=== PATIENT | female | born 2000 | race African-American/Black ===

== ENCOUNTER 2023-03-15 09:43 | Emergency (ER) | payer OTHER, SELFPAY ==
[2023-03-15 09:52] VITALS: BP 122/68
--- NOTE | 2023-03-15 10:36 | ED.GENMED ---
History of Present Illness
General
Chief Complaint: Back Pain
Source: patient
Exam Limitations: none
Time Seen by Provider: 03/15/23 09:57
Nursing documentation reviewed up to this point in time: agreed with
Travel History
Have you had any contact with someone who has COVID-19?: No
Do you have any symptoms of coronavirus? Fever > 100 degrees, chills, cough, shortness of breath, sore throat, loss of taste or smell, muscle aches, or headache?: No
History of Present Illness
History of Present Illness:
23 y/o F on ocp
here with months of lower back pain, mid lumbar midline pain, slightly worse on left side, nonradiating, no weakness/numbness/tignling/incontience
went to urgent care beginning of dec for this
gave robaxin and motrin and pain didn't get better
saw chiropractor and had adjustment and xrays, neg
no better
pt has been back to last week and they told her there was no other treatmnet
pt hasn't really been takin gthe muscle relaxant because she didn't feel relief
she has been clement to the gym and stretching
there is no change to pain today but pt wanted to come in and get checked because she has a lot of pain with bending and movement.
Past History
Past History
ED Past Medical History: None
ED Past Surgical History: Other
Social History
Tobacco: Non-smoker
Alcohol: None
Personal: Single
Living: with family
Employment: Employed ([employer])
Review of Systems
Review of Systems
Allergies reviewed?: Yes
All Other Systems: Not applicable
Phy Exam
Physical Exam
Physical Exam:
GENERAL: Alert , in no apparent distress, comfortable at rest
HEAD: NCAT
NECK: no midline tenderness, active ROM intact, no paraspinal muscle tenderness;
CARDIAC: Regular rate and rhythm, no edema
LUNGS: Clear breath sounds bilaterally, no acute respiratory distress, no wheezes/rales/rhonchi
ABDOMEN: Soft, without focal tenderness, no r/g, no cvat, normal bowel sounds, nondistended
NEUROLOGICAL: Alert and oriented, no focal neuro deficits, CN intact, 5/5 strength, sensation intact, ambulation slight limp left leg
SKIN: Warm and dry,
MUSCULOSKELETAL: No edema, well perfused. Normal inspection of the left hip, left leg
Patient has no tenderness to palpation of the hip, minimal tenderness in the SI joint
He has no pain with flexion of the left hip, external rotation, but with internal rotation has discomfort
Back: No midline tenderness, mild dextroscoliosis, slight left paraspinal muscle tenderness on exam, no swelling
negative straight leg raise Bilaterally
PSYCH: Normal and appropriate interaction.
Course
Orders/Labs/Results
Orders:
Orders
03/15/23 10:35
Lumbar Spine Complete, 4 View [CR Lumbar Spine Comp Min 4 Vw*] Urgent
Comment:
Reason For Exam: atraumatic low back pain (lmp last week);
03/15/23 11:35
Acetaminophen [Tylenol] 1,000 mg PO NOW STA
Ketorolac [Toradol] 30 mg IM NOW STA
Prednisone [Deltasone] 50 mg PO NOW STA
Vital Signs
Initial and Last Documented VS:
Initial Vital Signs
Temp Pulse Resp BP Pulse Ox
98.2 F 96 16 122/68 99
03/15/23 09:52 03/15/23 09:52 03/15/23 09:52 03/15/23 09:52 03/15/23 09:52
Last Documented Vital Signs
Temp Pulse Resp BP Pulse Ox
98.2 F 96 16 122/68 99
03/15/23 09:52 03/15/23 09:52 03/15/23 09:52 03/15/23 09:52 03/15/23 09:52
MDM/Problems Addressed
Differential Diagnosis Includes:
lumbar muscle pain, arthritis, disc herniation; less likely kidney infection, kidney stone
MDM/Problems Addressed:
23 y/o F
ongoing months of lower lumbar back pain, nonratdiating, positional/wrose with bending/movement
no associated red flag symptoms of numbness/tingling/weakness, incontiniece, no ivda
pt's lmp last week
has been to twice, chiropractor but still having symptoms
nothing new today
but till ongoin sypmtoms
on exam pt is very well appearing at rest
has pain with flexion
mild midline and left paraspinall upper and mid lumbar tendnress
no skin changes
no gluteal cleft swelling
neg straight leg raise b/l, normal distal NV exam
screening xrays indep reviewed by me and neg
nsaids here
pred rx x 5 days
tylenol
PT/pain mangaement.
considered UA but pt declined, had UA at and neg.
*Critical Care Note
Total Time (30-74mins, 75-104mins- exclusive of procedures): Not Applicable
ED Attending Note
-
Portions of this chart may have been created with voice recognition software.� Occasional wrong word or��sound alike� substitutions may have occurred due to the inherent limitations of voice recognition software.
Discharge Plan
Departure
Patient Disposition: Home (Routine Discharge)
Date of Disposition: 03/15/23
Time of Disposition: 11:39
Patient with high blood pressure during this ER visit?: No
Condition: Fair
Covid-19: Not Applicable
Discharge Problem:
Low back pain
Instructions: Low Back Pain (DC)
Prescriptions:
New
prednisone 50 mg tablet
50 mg PO DAILY Qty: 5 0RF
lidocaine 5 % adhesive patch,medicated
1 patch topical DAILY PRN (Reason: BACK PAIN) Qty: 15 0RF
No Action
Control Pill
1 tab PO DAILY
pantoprazole [Protonix] 40 mg tablet,delayed release (DR/EC)
40 mg PO DAILY Qty: 30 0RF
Rx Instructions:
Please take 30 minutes prior to eating or drinking anything in the morning.
Referrals:
Alfredo Santo MD [Active] - Follow up in 1 week (pain management for spine)
Leonie Handy CRNP [Family Provider] - Follow up in 2-3 days
Activity Restrictions/Additional Instructions:
YOUR SYMPTMOS SEEM RELATED TO MUSCULOSKELETAL BAKC PAIN
YOU CAN TRY A COURSE OF STEROIDS, PREDNISONE ONCE A DAY STARTING TOMORROW.
AVOID MOTRIN/IBUPROFEN FOR WHILE ON STEROIDS
TYLENOL 3 TIMES A DAY
YOU CAN CONTINUE THE MUSCLE RELAXANTS IF YOU WOULD LIKE
YOU CAN TRY TO SEE PAIN MANAGEMENT
YOU MAY NEED PT AND IF DO NOT GET BETTER, THEN MAYBE AN MRI
RETURN FOR: SEVERE PAIN, LEG WEAKNESS/NUMBNESS, INCONITINENCE, FEVER OR ANY CONCERNS.
Interventions
Interventions:
*Risk Screen - Suicide Last Done: 03/15/23 11:45
*General Assessment Last Done: 03/15/23 09:52
*Neglect/Abuse Screening Last Done: 03/15/23 11:45
ED- Fall Risk Assessment Last Done: 03/15/23 11:45
*ED COVID-19 Vaccine History Last Done: 03/15/23 09:52
*Nursing Disposition Last Done: 03/15/23 11:45
ED-Musculoskeletal Assessment Last Done: 03/15/23 11:46
Discharge Date and Time
Discharge Date/Time: 03/15/23 12:17
[2023-03-15] MEDS: DELTASONE 50 MG PO (11:44)
[2023-03-15] MEDS: TYLENOL 1000 MG PO (11:44)
[2023-03-15] MEDS: TORADOL 30 MG IM (11:45)
== END 2023-03-15 12:17 | disposition home or self-care (01) ==
LOC: EMR 09:43
PROVIDERS: EMERGENCY PHYSICIAN Student in an Organized Health Care Education/Training Program; FAMILY PHYSICIAN Nurse Practitioner
DX: M54.50 Low back pain, unspecified (principal)
CPT/HCPCS: 99283; 96372; 72110

== ENCOUNTER 2023-07-10 13:42 | Emergency (ER) | payer OTHER, SELFPAY ==
[2023-07-10 13:46] VITALS: BP 149/93
[2023-07-10] MEDS: MOTRIN 600 MG PO (14:59)
--- NOTE | 2023-07-10 15:27 | ED.MUSCINJ ---
HPI-Injury
General
Chief Complaint: Musculo-Skeletal Complaint
Source: patient
Exam Limitations: none
Time Seen by Provider: 07/10/23 14:46
Nursing documentation reviewed up to this point in time: agreed with
Travel History
Have you had any contact with someone who has COVID-19?: No
Do you have any symptoms of coronavirus? Fever > 100 degrees, chills, cough, shortness of breath, sore throat, loss of taste or smell, muscle aches, or headache?: No
History of Present Illness-Injury
Is this injury a work related problem?: No
Is pt an associate of [facility]?: No
Initial Injury comments:
Patient to ED with complaint of right sided neck pain. Unable to turn head. Radiates to right upper back. States she helped sig/other push his car 2 days prior to pain starting. Taking ibuprofen without relief. Pain started on .
Past History
Past History
ED Past Medical History: None
ED Past Surgical History: Other
Social History
Tobacco: Non-smoker
Alcohol: None
Personal: Single
Living: with family
Employment: Employed ([employer])
Review of Systems
Review of Systems
Allergies reviewed?: Yes
All Other Systems: ROS reviewed and negative except as documented in HPI and ROS
Constitutional: Reports no symptoms
Musculoskeletal: Reports neck pain (right sided neck pain radiating to right upper back.)
Skin: Reports no symptoms
Neurological: Reports no symptoms
Psychiatric: Reports no symptoms
Musculoskeletal Injury Exam
Musculoskeletal Injury Exam
Right Upper Back:
Pain with Movement?: Moderate
Tender to palpation?: Moderate
Soft tissue swelling?: None
External deformity and angulation?: None
Joint effusion?: None
Contusion?: None
Hematoma-local bleeding into tissue?: None
Strain- Sprain- Tear (Connective tissue injury)?: Moderate
Crepitus with movement?: No
Joint instability?: No
Malalignment/deformity?: No
Range of motion: Limited
Distal skin color and temperature: normal-warm & good color
Capillary Refill: normal
Normal distal neurovascular exam?: Yes
Phy Exam
General Physical Exam
General Presentation: well appearing and no apparent distress
General age: appears stated age
General Skin: warm and dry
General Habitus: normal
General Mental: alert
Neurological Exam
Neurological Exam: alert, oriented x3, no motor deficits, no sensory deficits and normal gait
Musculoskeletal Exam
Musculoskeletal Exam: neuro vasc intact
Skin Exam
Skin Exam: normal color, warm/dry and no rash
Psychiatric Exam
Psychiatric Exam: normal mood/affect
Injury Course
Orders/Labs/Results
Orders:
Orders
07/10/23 14:50
Ibuprofen [Motrin] 600 mg PO NOW STA
Cervical Spine 4 or 5 Vw [CR Cervical Spine 4 Or 5 Vw] Urgent
Comment:
Reason For Exam: right sided neck pain, stiffness.
*Radiology
Radiology exam reviewed: radiology read reviewed
*Pulse Oximetry
Patient hypoxic: no
*Critical Care Note
Total Time (30-74mins, 75-104mins- exclusive of procedures): Not Applicable
ED Attending Note
-
Portions of this chart may have been created with voice recognition software.� Occasional wrong word or��sound alike� substitutions may have occurred due to the inherent limitations of voice recognition software.
Discharge Plan
Departure
Patient Disposition: Home (Routine Discharge)
Date of Disposition: 07/10/23
Time of Disposition: 15:24
Patient with high blood pressure during this ER visit?: No
Condition: Good
Covid-19: Not Applicable
Discharge Problem:
Cervical strain
Instructions: Torticollis (DC), Ibuprofen, Using Cold for Pain
Prescriptions:
New
ibuprofen 600 mg tablet
600 mg PO Q6H PRN (Reason: Pain) Qty: 20 0RF
cyclobenzaprine 10 mg tablet
10 mg PO HS PRN (Reason: muscle spasm) Qty: 7 0RF
No Action
Control Pill
1 tab PO DAILY
pantoprazole [Protonix] 40 mg tablet,delayed release (DR/EC)
40 mg PO DAILY Qty: 30 0RF
Rx Instructions:
Please take 30 minutes prior to eating or drinking anything in the morning.
prednisone 50 mg tablet
50 mg PO DAILY Qty: 5 0RF
lidocaine 5 % adhesive patch,medicated
1 patch topical DAILY PRN (Reason: BACK PAIN) Qty: 15 0RF
Referrals:
Lenoie Handy CRNP [Family Provider] - Follow up in 2-3 days
Interventions
Interventions:
*Risk Screen - Suicide Last Done: 07/10/23 14:42
*General Assessment Last Done: 07/10/23 14:42
*Neglect/Abuse Screening Last Done: 07/10/23 14:42
ED- Fall Risk Assessment Last Done: 07/10/23 14:43
*ED COVID-19 Vaccine History Last Done: 07/10/23 14:42
ED-Musculoskeletal Assessment Last Done: 07/10/23 14:43
Discharge Date and Time
Print Language: ROMANIAN
== END 2023-07-10 15:39 | disposition home or self-care (01) ==
LOC: EMR 13:42
PROVIDERS: EMERGENCY PHYSICIAN Emergency Medicine; FAMILY PHYSICIAN Nurse Practitioner
DX: S16.1XXA Strain of muscle, fascia and tendon at neck level, initial encounter (principal); X58.XXXA Exposure to other specified factors, initial encounter
CPT/HCPCS: 99283; 72050

== ENCOUNTER 2024-10-07 16:36 | Day surgery (SDC) | payer OTHER, SELFPAY ==
[2024-10-07] VITALS (17 sets, daily range): BP systolic 90–121; BP diastolic 56–75; BMI 34.6
[2024-10-07] MEDS: TORADOL 30 MG IV (08:58)
[2024-10-07 09:02] LABS: Hematocrit 33.6 % (37.0-47.0); Hemoglobin 11.3 g/dL (12.0-16.0); Mean Corp Hgb Conc. 33.6 g/dL (33.0-37.0); Mean Corpuscular Volume 78.5 fL (81.0-99.0); Nucleated Red Blood Cells % 0 %; Platelet Count 292 10^3/uL (130-400); Red Cell Dist. Width 14.6 % (11.5-14.5)
[2024-10-07 09:22] LABS: ALT (SGPT) 77 U/L (0-35); AST (SGOT) 167 U/L (14-36); Albumin 3.4 g/dl (3.5-5.0); Alkaline Phosphatase 91 U/L (38-126); Blood Urea Nitrogen 7 mg/dl (7-17); Calcium 9.0 mg/dl (8.4-10.2); Carbon Dioxide 22 mmol/L (22-30); Chloride 108 mmol/L (98-107); Glucose 96 mg/dl (70-99); Lipase 74 U/L (23-300); Potassium 4.0 mmol/L (3.5-5.1); Sodium 135 mmol/L (135-145); Total Protein 6.0 g/dl (6.3-8.2); eGFR > 60.00
--- NOTE | 2024-10-07 09:22 | ED.GENMED ---
History of Present Illness
General
Chief Complaint: Abdominal Pain
Time Seen by Provider: 10/07/24 08:09
History of Present Illness
History of Present Illness:
see MDM
Past History
Past History
ED Past Medical History: None
ED Past Surgical History: Other
Social History
Tobacco: Non-smoker
Alcohol: None
Personal: Single
Living: with family
Employment: Employed ([employer])
Phy Exam
Physical Exam
Physical Exam:
see MDM
Course
Orders/Labs/Results
Orders:
Orders
10/07/24 08:24
Electrocardiogram (*1) Urgent
Reason for Study: Chest Pain
EKG- Treatment ONCE
CR Chest - 2 Views Urgent
Comment:
Reason For Exam: pleuritic cp, recent D&E
10/07/24 08:45
Complete Blood Count/With Diff Urgent
Comprehensive Metabolic Panel Urgent
D-Dimer Urgent
Lipase Urgent
Troponin I Urgent
10/07/24 08:55
Ketorolac [Toradol] 30 mg IV NOW STA
10/07/24 09:28
US Abdomen Complete/Upper Routine
Comment:
Reason For Exam: upper abd pain, recently
Abnormal Lab Results
10/07/24
08:45
WBC 13.1 H 10^3/uL
(4.8-10.8)
Hgb 11.3 L g/dL
(12.0-16.0)
Hct 33.6 L %
(37.0-47.0)
MCV 78.5 L fL
(81.0-99.0)
MCH 26.4 L pg
(27.0-31.0)
RDW 14.6 H %
(11.5-14.5)
Absolute Neuts (auto) 9.0 H 10^3/uL
(1.4-6.5)
Absolute Monos (auto) 0.9 H 10^3/uL
(0.1-0.6)
D-Dimer 0.69 H ug/mlFEU
(0.00-0.50)
Chloride 108 H mmol/L
(98-107)
Creatinine 0.5 L mg/dL
(0.6-1.0)
AST 167 H U/L
(14-36)
ALT 77 H U/L
(0-35)
Total Protein 6.0 L g/dl
(6.3-8.2)
Albumin 3.4 L g/dl
(3.5-5.0)
10/07/24 08:45
10/07/24 08:45
Vital Signs
Initial and Last Documented VS:
Initial Vital Signs
Temp Pulse Resp BP Pulse Ox
36.9 C 95 16 121/75 95
10/07/24 08:02 10/07/24 08:02 10/07/24 08:02 10/07/24 08:02 10/07/24 08:02
Last Documented Vital Signs
Temp Pulse Resp BP Pulse Ox
36.9 C 95 16 109/66 99
10/07/24 08:02 10/07/24 08:02 10/07/24 08:02 10/07/24 10:00 10/07/24 10:15
MDM/Problems Addressed
Differential Diagnosis Includes:
see MDM
MDM/Problems Addressed:
Note:
CHIEF COMPLAINT(S)
Sharp pain under the right ribcage radiating to the back with associated shortness of breath.
HISTORY OF PRESENT ILLNESS
The patient is a 24-year-old female presenting with epigastric pain to her umbilicus with sob this morning around 730 am. She reports difficulty taking a deep breath and feeling like her breathing is very shallow. the pain woke her from sleep. She
experienced a similar episode once last week, which resolved after getting up and drinking water but was not accompanied by sob.this morning she tried drinking water, but had no relief. She rated the initial pain as severe and states it has since
improved slightly. She denies significant cough, fever, vomiting, or diarrhea but reports a minor cough, which she attributes to possible dust exposure. The patient confirms no significant cold symptoms, normal bowel movements, and denies any other
notable symptoms, such as fever, vomiting, or diarrhea.
She has no history of lung or gastric issues. There is no history of prolonged immobility, leg swelling, or known family history of blood clots. Past recent medical procedures include a D&E performed at [facility], of 13 week
gestation 6 days ago with intermittent, non-heavy bleeding post-procedure but no associated pelvic pain or prior shortness of breath. The procedure was her first . She has a scheduled follow-up call with [facility] next week. The
patient is currently not on any medication.
Her symptoms, such as pain and shortness of breath, emerged the day after her recent procedure; however, the shortness of breath is a new occurrence.
no fhx of CAD
no fhx of blood clots
PHYSICAL EXAM
- Vital signs and nursing notes reviewed.
GENERAL: Alert , in no apparent distress
EYE: pupils equal and reactive
NECK: Supple
ENT: o/p clr, mmm.
CARDIAC: Regular rate and rhythm .
LUNGS: very diminished, pleuritic pain, not taking deep breaths; no rales
ABDOMEN: Soft, without focal tenderness, no r/g, no cvat, normal bowel sounds
mild discomfort with gomez's sign
NEUROLOGICAL: Alert and oriented, no focal neuro deficits
SKIN: Warm and dry, skin intact.
MUSCULOSKELETAL: No edema, well perfused. neg elmo's sign
PSYCH: Normal and appropriate interaction.
PLAN
- Conduct an electrocardiogram (EKG) to assess cardiac function.
- Consider imaging studies, pending initial test results, to further investigate potential causes including gallbladder problems or potential blood clot.
- Administer intravenous ketorolac for pain management, if the patient consents. She is agreeable to receive medication via IV and denies any medication allergies.
DIFFERENTIAL DIAGNOSIS
The Differential Diagnosis includes, in no particular order and is not limited to:
- Anxiety
- Gastroesophageal reflux disease
- Subdiaphragmatic air
- Pleural effusion
- Pulmonary embolism
- Gallbladder disease, possibly related to
- Costochondritis
- Musculoskeletal pain
- Pneumonia
- Post-procedure complication
10/07/24 - 09:34
X-ray results are clear, showing no air under the diaphragm and healthy lungs. Liver markers are slightly elevated, suggesting possible gallstones, prompting an ultrasound. Patient exhibits no signs of infection or severe symptoms, leading to advice
on dietary modifications to reduce fat intake to manage pain. If pain becomes persistent or intolerable, surgical consultation may be necessary. Potential for admission and gallbladder removal exists if pain is uncontrollable or an infection is
detected. Patient reports improvement in pain, but breathing is still somewhat restricted. There was a discussion on and medication history, but no direct link established between current condition and past factors.
aware of elevated D DIMER but given her transaminitis and where her pain is, i suspected biliary colic
the d dimer could be elevated for simply having had and her
she has no hypoxia or tachycardia
no ekg changes
and clear lungs
d/w dr. logan who agreed to pursue with [facility]
10/07/24 - 11:35
Ultrasound confirmed presence of small gallstones without infection. Elevated blood clot test suggests potential issues, though its non-specific. Pain is likely due to biliary colic. Lungs clear, cardiac markers normal; cardiac issues unlikely. Plan
to consult surgeon for potential gallbladder removal. Patient not experiencing nausea, but describes pain exacerbating with distance. Withholding medication to allow surgeon to better assess symptoms.
1400 - admit to surgery for rowan
*Pulse Oximetry
SaO2: 95
Oxygen Mode of Delivery: Room air
Patient hypoxic: no (99)
*Critical Care Note
Total Time (30-74mins, 75-104mins- exclusive of procedures): Not Applicable
ED Attending Note
-
Portions of this chart may have been created with voice recognition software.� Occasional wrong word or��sound alike� substitutions may have occurred due to the inherent limitations of voice recognition software.
Discharge Plan
Departure
Patient Disposition: Admit
Date of Disposition: 10/07/24
Time of Disposition: 13:34
Admit to: Med/Surg
Admit to doctor: ángel
Presentation/result/management discussed w/ accepting MD/DO: ángel
Condition: Fair
Discharge Problem:
Cholelithiasis, Cholecystitis
Prescriptions:
No Action
norgestimate-ethinyl estradiol [Kalyn] 0.25-0.035 mg Tablet
1 tab PO DAILY
Referrals:
Leonie Handy CRNP [Family Provider, General]
Interventions
Interventions:
*Risk Screen - Suicide Last Done: 10/07/24 08:02
*General Assessment Last Done: 10/07/24 08:02
*Neglect/Abuse Screening Last Done: 10/07/24 08:02
UJ-Tyhlzs-Gucdowqfjn Assessment Last Done: 10/07/24 10:00
Discharge Date and Time
Print Language: FIJIAN
[2024-10-07 09:23] LABS: D-Dimer 0.69 ug/mlFEU (0.00-0.50)
[2024-10-07 09:35] LABS: Troponin I < 0.012 ng/ml
--- NOTE | 2024-10-07 14:28 | W.SUR.PREOP ---
Pre-Operative Surgical Note
-
I have examined this patient prior to the performance of the scheduled procedure.
The patient's condition is unchanged from the time of the current History and
Physical and the patient is able to undergo the scheduled procedure.
--- NOTE | 2024-10-07 14:32 | CON.GS ---
Medical History
-
Chief Complaint: RUQ abdominal pain
History of Present Illness:
Patient is a 24 yo F with a PMH notable for obesity (recently on Wegovy) and s/p D&C with elective approximately 1 week ago who presents with epigastric and RUQ abdominal pain. Saundra states that her current attack of pain began early this
morning at approximately 6 to 7 AM. Symptoms awakened her from sleep. She describes an intense pressure and pain in her epigastrium radiating to her umbilicus and her upper RIGHT back. Difficulty with taking a deep breath. Subjective chills and
shaky sensation, but no fevers. No nausea or vomiting. She denies any jaundice, pale stools, or tea colored urine. She reports a similar attack of discomfort approximately 1 week ago in the evening just prior to bed. This episode lasted minutes
to hours before resolving after drinking some water. No clear association with fatty food intake. No family history notable for cholecystectomy. Currently she continues to have some RUQ discomfort.
Past Medical History
Past Medical History: Other (Obesity)
Past Surgical History: Gynecological (D&C with elective )
Social History
Tobacco: Vaping
Alcohol: Occasional
Drug: None
Family History
Family History: Reviewed & Noncontributory
Allergies / Home Medications
Allergy/AdvReac Type Severity Reaction Status Date / Time
amoxicillin Allergy Hives Verified 10/07/24 08:02
Penicillins Allergy Hives Verified 10/07/24 08:02
�Medication �Instructions �Recorded �Confirmed �Type
norgestimate 0.25 mg-ethinyl 1 tab PO DAILY 03/20/22 10/07/24 History
estradiol 0.035 mg tablet (Kalyn)
Review of Systems
-
A 10 point review of systems was completed, and was negative except as per HPI.
Physical Exam
Vital Signs
Temp Pulse Resp BP Pulse Ox
98.5 F 95 16 109/66 99
10/07/24 08:02 10/07/24 08:02 10/07/24 08:02 10/07/24 10:00 10/07/24 10:15
10/06/24 10/07/24 10/08/24
06:59 06:59 06:59
Actual Weight 91.4 kg
Body Mass Index (BMI) 34.6
Lab Results
10/07/24 08:45
10/07/24 08:45
WBC 13.1 10^3/uL (4.8-10.8) H 10/07/24 08:45
Hgb 11.3 g/dL (12.0-16.0) L 10/07/24 08:45
Hct 33.6 % (37.0-47.0) L 10/07/24 08:45
Plt Count 292 10^3/uL (130-400) 10/07/24 08:45
Abs Immat Gran (auto) 0.0 10^3/uL (0-0.05) 10/07/24 08:45
Neutrophils % 68.3 % (42.2-75.2) 10/07/24 08:45
Physical Exam
General: Well Developed, Well Nourished and No Apparent Distress
HEENT: Normocephalic and Anicteric
Respiratory: Non Labored Respirations
Cardiac: Regular Rhythm
GI: Soft, Non Distended, Tender (RUQ/epigastric, positive Simmons sign), Obese and Other (No diffuse peritonitis)
Musculoskeletal: No Edema
Skin: Warm and Dry
Neuro: Nonfocal/Grossly Intact
Data Reviewed
-
Ultrasound: Image Personally Visualized and interpreted and Report Reviewed by me
Labs: Labs Reviewed by me
Assessment / Plan
-
Patient is a 24 yo F p/w symptomatic cholelithiasis possible choledocholithiasis versus cholecystitis
The natural history and pathophysiology of biliary and stone disease was discussed. Anatomy was reviewed utilizing pictorial images. Workup thus far including labs and ultrasound were reviewed. Options for management including medical management
with a low-fat diet, further workup with MRI/MRCP, and surgical management with cholecystectomy were considered and discussed. The pros and cons of all approaches was discussed. Given her persistent symptoms recommend laparoscopic cholecystectomy
with intraoperative cholangiogram.
Plan for laparoscopic cholecystectomy with intraoperative cholangiography. The procedure itself, as well as the risks, benefits, and alternatives was discussed. Specifically, we discussed the risks of bleeding, infection, injury to surrounding
structures (bowel, bile ducts), CBD injury, and need for open procedure. Typical postprocedure recovery was discussed. Specifically discussed the potential findings of choledocholithiasis and need for further workup and management by GI. We also
discussed pain management, activity restrictions, and the 10 to 20% risks of fluctuations in GI function were discussed. All questions answered. Consent signed.
-- Lap rowan with IOC
-- NPO, IVF
-- Abx: Levo/Flagyl
-- Admit pending procedure and findings
--- NOTE | 2024-10-07 16:36 | W.IMMPOSTOP ---
Surgical Immed Post Op Note
-
Primary Surgeon: Ruth
Assisting Surgeon: NATALIA Guerin
Pre-op Diagnosis: Symptomatic cholelithiasis
Post-op Diagnosis: Symptomatic cholelithiasis
Procedure Performed: Laparoscopic cholecystectomy with IOC and LCBDE
Anesthesia Type: General
Specimen / Cultures:
1. Gallbladder
Estimated Blood Loss: 3 cc
Complications: None
Operative Findings:
1. Normal appearing GB, slightly thickened wall
2. Critical view
3. IOC with anatomy confirmed, no emptying into duodenum despite flushing and Glucagon
4. Guidewire and catheter passed with improved emptying into duodenum and visible decompression of dilated CBD
5. Artery and duct taken with clips
[2024-10-07] MEDS: DILAUDID 0.25 MG IV (17:13)
[2024-10-07] MEDS: NORMOSOL-R/PLASMALYTE-A 1000 IV (17:32)
[2024-10-07] MEDS: ZOFRAN 4 MG IV (18:30)
[2024-10-07] MEDS: TORADOL 10 MG IV (18:40)
[2024-10-07] MEDS: COMPAZINE 5 MG IV (19:43)
--- NOTE | 2024-10-07 20:11 | TRANSFER ---
Pt arrived to 2S post op lap rowan at 1953 - report received from [employer]. Pt has 5 lap sites to abd w glue open to air. C/o tenderness in RLQ, did not require PRN pain med at time of assessment. VS WNL. Call hazel within reach. Safety
maintained.
[2024-10-07] MEDS: TYLENOL 650 MG PO (20:26)
[2024-10-08] MEDS: TYLENOL PO (01:00)
[2024-10-08] MEDS: NORMOSOL-R/PLASMALYTE-A 1000 IV (02:46)
[2024-10-08] MEDS: TYLENOL 650 MG PO ×3 (03:00→12:14)
[2024-10-08 03:15] VITALS: BP 94/55
[2024-10-08 07:02] LABS: Hematocrit 33.9 % (37.0-47.0); Hemoglobin 11.6 g/dL (12.0-16.0); Mean Corp Hgb Conc. 34.2 g/dL (33.0-37.0); Mean Corpuscular Volume 77.0 fL (81.0-99.0); Platelet Count 300 10^3/uL (130-400); Red Cell Dist. Width 14.6 % (11.5-14.5)
[2024-10-08 07:29] LABS: ALT (SGPT) 275 U/L (0-35); AST (SGOT) 346 U/L (14-36); Albumin 3.2 g/dl (3.5-5.0); Alkaline Phosphatase 92 U/L (38-126); Blood Urea Nitrogen 4 mg/dl (7-17); Calcium 8.9 mg/dl (8.4-10.2); Carbon Dioxide 23 mmol/L (22-30); Chloride 110 mmol/L (98-107); Estimated Creatinine Clearance > 125 ml/min; Glucose 127 mg/dl (70-99); Potassium 5.1 mmol/L (3.5-5.1); Sodium 136 mmol/L (135-145); Total Protein 5.9 g/dl (6.3-8.2); eGFR > 60.00
[2024-10-08 08:26] VITALS: BP 92/56
--- NOTE | 2024-10-08 09:44 | CM ---
CM reviewed medical records. Patient denies history of VN, SNF or DME. Patient has a PCP> Patient plans to use [facility] for medication services.
PLAN: home with family
--- NOTE | 2024-10-08 11:01 | W.PN.GS2 ---
Addendum entered and electronically signed by Kedar Miranda MD 10/08/24 14:51:
Repeat LFTs trending down. Patient nakul clinically stable. Plan for discharge with outpatient trending of labs.
Addendum entered and electronically signed by Kedar Miranda MD 10/08/24 13:47:
Patient seen and examined.
No complaints. Pain well-controlled. Tolerating diet. Reports some epigastric and RUQ muscular discomfort particularly with positioning, overall well-controlled with pain meds. No nausea or vomiting. Voiding. Emptying. Passing flatus.
Gen: NAD
Abd: soft, mild/moderate tenderness, ND, non-peritoneal, incisions c/d/i - no erythema, ecchymosis or drainage
Patient is a 24 yo F POD#1 s/p laparoscopic cholecystectomy with cholangiogram and IOC and LCBDE
AVSS
Labs notable for persistently elevated reactive leukocytosis, stable Hb, normal electrolytes and renal function, continued elevation in LFTs, normal bilirubin and ALP
Recovering well overall. Appears to have had choledocholithiasis with clearance via a transcystic approach. Continued rising LFTs does raise concern for potential persistent choledocholithiasis, however, finl run of IOC clear and overall appears
clinically well. Will trend labs later today, dispo pending this trend.
-- Low fat diet
-- Pain control: Tylenol, Toradol, Oxycodone
-- HLIV
-- DVT: Lovenox
-- Repeat LFTs this afternoon
-- Dispo pending the above
Original Note:
Today's Communication / Plan
-
Follow-up afternoon LFTs for elevated transaminases
Possible discharge later today pending after mentioned LFTs and continued clinical improvement
Assessment / Plan
-
Assessment: Patient is a 24-year-old female with symptomatic cholelithiasis s/p laparoscopic cholecystectomy, intraoperative cholangiogram, laparoscopic common bile duct exploration.
Patient appears to be improving clinically following yesterday's surgery, with no nausea or vomiting since the immediate postoperative period.
Afebrile, mild leukocytosis (13.0) stable from yesterday
Transaminases trending up since yesterday: AST 346 (167 yesterday), ALT 275 (77 yesterday)
- Suspected transient transaminase elevation related to yesterday's cholecystectomy
Plan:
Repeat LFTs this afternoon
Pain control, as follows:
-Acetaminophen scheduled while awake
-Ketorolac, hydromorphone, oxycodone as needed
Ondansetron for nausea as needed
Diet: Regular, as tolerated
Encourage OOB, as tolerated
DVT PPx: Enoxaparin
Disposition: Possible discharge home later today, pending afternoon LFTs and clinical status
Subjective Data
-
Date of Service: October 08, 2024
Patient seen at the bedside on POD #1. Nursing reports NAEO. Patient states she had an episode of vomiting very soon after surgery yesterday, although she has had no nausea or vomiting since antiemetic administration last night. Patient reports
right-sided abdominal pain 2/10 in intensity, which is improving since yesterday. Patient reports she has an appetite. Patient is passing gas, though no BM since surgery. Voiding without issue.
Objective Data
-
Intake and Output
10/07/24 10/08/24 10/09/24
06:59 06:59 06:59
Intake Total 1540 / 1540
Balance 1540 / 1540
Intake:
Oral fluids 240 / 240
IV fluids (Total) 1300 / 1300
Normosal 300 / 300
Other:
Number of approximated MODERATE 1
amounts of urine
Vital Signs
Temp Pulse Resp BP Pulse Ox
97.9 F 61 16 92/56 98
10/08/24 08:26 10/08/24 08:26 10/08/24 08:26 10/08/24 08:10/08/24 09:58
Lab Results
10/08/24 06:37
10/08/24 06:37
Calcium 8.9 mg/dl (8.4-10.2) 10/08/24 06:37
Total Bilirubin 0.7 mg/dl (0.2-1.3) 10/08/24 06:37
AST 346 U/L (14-36) H 10/08/24 06:37
ALT 275 U/L (0-35) H 10/08/24 06:37
Alkaline Phosphatase 92 U/L (38-126) 10/08/24 06:37
Total Protein 5.9 g/dl (6.3-8.2) L 10/08/24 06:37
Albumin 3.2 g/dl (3.5-5.0) L 10/08/24 06:37
Physical Exam
-
General: NAD, conversant.
Abdominal: Soft, appropriately tender to palpation. Surgical sites clean, dry, and intact. Nondistended, no ecchymosis, no fluctuance.
Patient has a stokes catheter: No
Patient has a central line: No
[2024-10-08 11:20] VITALS: BP 96/67
[2024-10-08 13:52] LABS: ALT (SGPT) 261 U/L (0-35); AST (SGOT) 241 U/L (14-36); Albumin 3.3 g/dl (3.5-5.0); Alkaline Phosphatase 96 U/L (38-126); Total Protein 5.9 g/dl (6.3-8.2)
[2024-10-08 15:10] VITALS: BP 117/75
== END 2024-10-08 15:47 | disposition home or self-care (01) ==
LOC: SDS 16:36
PROVIDERS: Physician Assistant; ATTENDING PHYSICIAN Surgery; EMERGENCY PHYSICIAN Emergency Medicine; FAMILY PHYSICIAN Nurse Practitioner
DX: K80.10 Calculus of gallbladder with chronic cholecystitis without obstruction (principal); K82.9 Disease of gallbladder, unspecified
CPT/HCPCS: 47563; 71046; 74300; 76000; 76700; 80053; 80076; 83690; 84484; 85025; 85027; 85379; 88304; 93005; 96374; 99285; A4300; J1610